=== PATIENT | female | born 1975 | race Two or more races ===

== ENCOUNTER 2017-07-05 10:39 | Outpatient (CLI) | payer OTHER ==
[~2017-07-05 10:39] MED LIST: IBUPROFEN800 MG PO; TYLENOL-CODEINE1 TAB PO
== END 2017-07-05 11:00 | disposition home or self-care (01) ==
LOC: MAMO-SONO 10:39
DX: N92.0 Excessive and frequent menstruation with regular cycle (principal); N60.11 Diffuse cystic mastopathy of right breast; N60.12 Diffuse cystic mastopathy of left breast; Z12.31 Encounter for screening mammogram for malignant neoplasm of breast

== ENCOUNTER 2017-08-18 05:50 | Day surgery (SDC) | payer OTHER ==
[2017-08-18] MEDS ORDERED: NAPROXEN500 MG PO (10:13)
[2017-08-18] MEDS ORDERED: DOXYCYCLINE HY100 MG PO (10:14)
== END 2017-08-18 13:15 | disposition home or self-care (01) ==
LOC: CIR.AMB 05:50
DX: N84.0 Polyp of corpus uteri (principal); N93.8 Other specified abnormal uterine and vaginal bleeding

== ENCOUNTER 2018-07-12 07:40 | Outpatient (CLI) | payer OTHER ==
[~2018-07-12 07:40] MED LIST changes: +DOXYCYCLINE HY100 MG PO; +NAPROXEN500 MG PO
== END 2018-07-12 09:30 | disposition home or self-care (01) ==
LOC: MAMO-SONO 07:40
DX: N60.11 Diffuse cystic mastopathy of right breast (principal); N60.12 Diffuse cystic mastopathy of left breast; Z12.31 Encounter for screening mammogram for malignant neoplasm of breast

== ENCOUNTER 2020-09-03 13:40 | Outpatient (CLI) | payer OTHER | END 2020-09-03 13:56 | disposition home or self-care (01) | LOC: MAMO-SONO 13:40 | PROVIDERS: ATTEND Obstetrics & Gynecology | DX: R92.2 Inconclusive mammogram (principal) ==

== ENCOUNTER 2021-03-23 14:01 | Outpatient (CLI) | payer OTHER | END 2021-03-23 14:20 | disposition home or self-care (01) | LOC: MAMO-SONO 14:01 | PROVIDERS: ATTEND Obstetrics & Gynecology | DX: N60.11 Diffuse cystic mastopathy of right breast (principal); N60.12 Diffuse cystic mastopathy of left breast; Z12.31 Encounter for screening mammogram for malignant neoplasm of breast ==

== ENCOUNTER 2025-04-09 13:09 | Outpatient (CLI) | payer OTHER | END 2025-04-09 13:12 | disposition home or self-care (01) | LOC: MAMO-SONO 13:09 | PROVIDERS: ATTEND Obstetrics & Gynecology | DX: N60.11 Diffuse cystic mastopathy of right breast (principal); N60.12 Diffuse cystic mastopathy of left breast ==